=== PATIENT | male | born 1995 | race Caucasian/White ===

== ENCOUNTER 2016-12-06 01:41 | Emergency (ER) | payer OTHER ==
[~2016-12-06] VITALS: Ht 180.3 cm; Wt 84.0 kg
[2016-12-06 01:45] VITALS: TEMP 36.8; Ht 180.3 cm; Wt 84.0 kg
[2016-12-06 01:49] VITALS: O2SAT 98
[2016-12-06] MEDS ORDERED: SERT50TA PO (02:08)
[2016-12-06] MEDS ORDERED: LISD50CA4 PO (02:08)
--- NOTE | 2016-12-06 02:56 | EMERGENCY ROOM VISIT NOTE ---
History First contact with patient: 01:45 Chief Complaint: ALCOHOL OVERDOSE Stated Complaint: ALCOHOL OVERDOSE Nursing Triage Summary: arrived via amb with bls. pt was riding a [employer] bus home and he vomited so police were called and ems. pt alert and oriented denies any c/o. History of Present Illness The patient is a 21 year old male who presents to the Emergency Room for evaluation of an alcohol overdose. The patient was riding the [employer] bus home and vomited, so police were called and the patient was brought here. The patient denies any complaints at this time. A breathalyzed alcohol level was found to be .183. The patient denies any trauma. He does admit to drinking liquor tonight. He denies any drug use. Review of Systems A complete 10 point review of systems was reviewed with the patient with pertinent positives and negatives as per history of present illness. All else were negative. Social History Smoking Status: Never Smoker Current/Historical Medications Scheduled Sertraline (Zoloft), 75 MG PO DAILY Scheduled PRN Lisdexamfetamine Dimesylate (Vyvanse), 50 MG PO DAILY PRN for ADHD Physical Exam Vital Signs Date Time Temp Pulse Resp B/P (MAP) Pulse Ox O2 Delivery O2 Flow Rate FiO2 12/06/16 03:00 82 18 143/83 98 Room Air 12/06/16 01:49 98 Room Air 12/06/16 01:45 36.8 98 20 156/80 98 Room Air Pain Rating (0-10): 0 Physical Exam VITALS: Vitals are noted on the nurse's note and reviewed by myself. Vital signs stable. GENERAL: This is a 21-year-old female, sitting up in bed, appears to be mildly intoxicated, smells of ETOH. SKIN: The skin was without erythema, edema, or bruising. HEAD: Normocephalic atraumatic. EARS: External auditory canals clear. No hemotympanum. EYES: Pupils equal round and reactive to light and accommodation. NOSE: No deformities noted. MOUTH: No loose or chipped teeth. NECK: No cervical spine tenderness. HEART: Regular rate and rhythm without murmurs gallops or rubs. LUNGS: Clear to auscultation bilaterally without wheezes, rales or rhonchi. ABDOMEN: Soft, nontender. MUSCULOSKELETAL: Full range of motion throughout. Strength intact throughout. NEURO: Patient was alert and oriented to person place and time. He answers all questions appropriately. Patient cooperative with examiner. Medical Decision & Procedures Medical Decision Differential diagnosis includes alcohol intoxication, drug use, infection, hypoglycemia, head trauma, among others. The patient is a 21-year-old male who presents today for evaluation of probable alcohol intoxication. Patient does admit to drinking alcohol tonight. He was awake and alert on my initial examination. The patient had no complaints and was very apologetic. He was monitored for greater than one hour and was able to tolerate by mouth fluids without any nausea or vomiting. I do not feel that the patient needs to be monitored for any longer. He was discharged home in a taxi. Medication Reconcilliation Current Medication List: was personally reviewed by me Blood Pressure Screening Patient's blood pressure: Elevated blood pressure Blood pressure disposition: Elevated BP felt to be situational Impression Primary Impression: Alcoholic intoxication Departure Information Dispostion Home / Self-Care Condition GOOD Referrals No Doctor, Assigned (PCP) Patient Instructions My [facility] Additional Instructions You were evaluated in emergency department for intoxication. Over the next 24 hours keep well hydrated and eat light meals. Don't drink any more alcohol. This is important. Unless an exceptional circumstance, the Hospital DOES NOT contact anyone during your visit, nor is your Protected Medical Information released to anyone without your approval/request. This means we do not contact your Parents, the Police, [facility], etc. However, you will likely receive a bill from the Hospital and/or your Insurance company, which will usually be sent to the Primary Policy Craft (often one's Parents) If your incident was on campus, or if the Police were involved, they will often contact the University to make them aware of what happened. Often this will result in you being required to take Alcohol Education classes (ie BASICS class) . Please see information given to you at discharge regarding contact for this. If the Police were involved you will likely be cited for public intoxication. Please contact either [facility] Police or the [place] Police for further information. Call 911 or return to Emergency Department if you develop: Passing out, difficulty breathing, many episodes of vomiting, blood in vomit or stool, abdominal pain, fevers, or other severe symptoms. We are always here to help if you feel you need further evaluation or treatment. Problem Qualifiers Primary Impression: Alcoholic intoxication Complication of substance-induced condition: uncomplicated Qualified Codes: F10.920 - Alcohol use, unspecified with intoxication, uncomplicated
[2016-12-06 03:00] VITALS: BP 143/83; PULSE 82; O2SAT 98
== END 2016-12-06 03:09 | disposition home or self-care (01) ==
LOC: EDBD 01:41 → C.EDB 01:43
DX: F10.920 Alcohol use, unspecified with intoxication, uncomplicated (principal); Y90.6 Blood alcohol level of 120-199 mg/100 ml